=== PATIENT | female | born 1965 | race Caucasian/White ===

== ENCOUNTER 2019-02-23 14:08 | Inpatient (IN) ==
[2019-02-23] MEDS ORDERED: ZOFRAN IV PRN (17:03)
[2019-02-23] MEDS ORDERED: SALINE LOCK IV FLUID XX ONE (17:03)
[2019-02-23] MEDS ORDERED: TUBERSOL ID ONE (17:03)
[2019-02-23] MEDS ORDERED: ATARAX PO PRN (17:03)
[2019-02-23] MEDS ORDERED: IMODIUM PO PRN (17:03)
[2019-02-23] MEDS ORDERED: BENTYL PO PRN (17:03)
[2019-02-23] MEDS ORDERED: TYLENOL PO PRN (17:03)
[2019-02-23] MEDS ORDERED: D5W 1,000 ML IV PRN (17:03)
[2019-02-23] MEDS ORDERED: PHENOBARBITAL IV PRN (17:03)
[2019-02-23] MEDS ORDERED: ROBAXIN PO PRN (17:03)
[2019-02-23] MEDS ORDERED: SENOKOT PO PRN (17:03)
[2019-02-23] MEDS ORDERED: DESYREL PO PRN (17:03)
[2019-02-23] MEDS ORDERED: DULCOLAX PR PRN (17:03)
[2019-02-23] MEDS ORDERED: MAALOX PLUS LIQUID PO PRN (17:03)
[2019-02-23 17:25] LABS: URINE SOURCE VOIDED
[2019-02-23 17:34] LABS: BILIRUBIN URINE 1+ (NEGATIVE); BLOOD URINE 1+ (NEGATIVE); CLARITY SL. CLOUDY (CLEAR); COLOR YELLOW; GLUCOSE URINE NEGATIVE (NEGATIVE); KETONE URINE 3+(Large) mg/dL (NEGATIVE); LEUKOCYTES URINE TRACE (NEGATIVE); NITRITE URINE POSITIVE (NEGATIVE); PROTEIN URINE 2+(100 mg/dL) mg/dL (NEGATIVE); SP GRAVITY URINE 1.015; UROBILINOGEN URINE 4 mg/dL
[2019-02-23 17:36] LABS: URINE BACTERIA 3+ /HFP; URINE EPITHELIAL CELLS >10 /HPF (<10); URINE RBC <10 /HPF (<10); URINE WBC <10 /HPF (<10)
[2019-02-23 17:40] LABS: UR AMPHETAMINES QUAL NONE DETECTED (NONE DETECT); UR BARBITUATES QUAL NONE DETECTED (NONE DETECT); UR BENZODIAZEPIN QUAL NONE DETECTED (NONE DETECT); UR COCAINE QUAL NONE DETECTED (NONE DETECT); UR METHADONE QUAL NONE DETECTED (NONE DETECT); UR METHAMPHETAMINE QUAL NONE DETECTED (NONE DETECT); UR OPIATES QUAL PRESUMPTIVE POSITIVE (NONE DETECT); UR OXYCODONE QUAL NONE DETECTED (NONE DETECT); UR PCP QUAL NONE DETECTED (NONE DETECT); UR PROPOXYPHENE QUAL NONE DETECTED (NONE DETECT)
[2019-02-23 17:41] LABS: UR CANNABINOIDS QUAL PRESUMPTIVE POSITIVE (NONE DETECT); UR TCA QUAL NONE DETECTED (NONE DETECT)
[2019-02-23 17:52] LABS: HEMATOCRIT 37.4 % (37.0-47.0); HEMOGLOBIN 13.2 g/dL (12.0-16.0); MCHC 35.3 g/dL (33-37); MCV 96.4 FL (81-99); MPV 11.1 FL (7.4-10.4); RBC 3.88 XMIL (4.2-5.4); RDW 12.8 % (11.5-14.5); WBC 5.33 X1000 (4.8-10.8)
[2019-02-23 18:08] LABS: AMYLASE 34 U/L (20-200); LIPASE 131 U/L (13-60)
[2019-02-23 18:09] LABS: ESTIMATED GFR > 60; INR 0.95; PROTIME 13.2 Seconds (11.0-16.0)
[2019-02-23] MEDS: LIBRIUM PO SCH ×2 (18:17→23:04)
[2019-02-23] MEDS: NICODERM PATCH TD PRN (18:19)
[2019-02-23 18:23] LABS: AGAP 30; ALKALINE PHOSPHATASE 74 U/L (32-104); BUN 8 mg/dL (8-22); CALCIUM 8.9 mg/dL (8.8-10.2); CHLORIDE 87 mmol/L (98-107); COSMO 266; CREATININE 0.8 mg/dL (0.5-0.9); GLUCOSE 84 mg/dL (70-104); GOT 106 U/L (10-30); GPT 71 U/L (10-36); POTASSIUM 2.4 mmol/L (3.5-5.1); SODIUM 134 mmol/L (136-145); TCO2 18 mmol/L (25-35); TOTAL PROTEIN 6.7 g/dL (6.3-8.3)
[2019-02-23] MEDS ORDERED: M.V.I.-12 10 ML, FOLIC ACID 1 MG, MAGNESIUM SULFATE 1 GM, THIAMINE 100 MG in NS 1,000 ML IV ONE (18:30)
[2019-02-23] MEDS ORDERED: KLOR-CON PO ONE (18:35)
[2019-02-23] MEDS: SEROQUEL PO PRN (20:10)
[2019-02-24] MEDS: LIBRIUM PO SCH ×4 (05:11→23:10)
[2019-02-24] MEDS: PROTONIX PO SCH (06:04)
[2019-02-24 06:58] LABS: AGAP 22; BUN 9 mg/dL (8-22); CALCIUM 8.5 mg/dL (8.8-10.2); CHLORIDE 96 mmol/L (98-107); COSMO 277; CREATININE 0.9 mg/dL (0.5-0.9); ESTIMATED GFR > 60; GLUCOSE 106 mg/dL (70-104); POTASSIUM 2.6 mmol/L (3.5-5.1); SODIUM 139 mmol/L (136-145); TCO2 22 mmol/L (25-35)
[2019-02-24] MEDS: THERA M PLUS PO SCH (08:51)
[2019-02-24] MEDS: FOLIC ACID PO SCH (08:51)
[2019-02-24] MEDS: VITAMIN B-1 PO SCH (08:51)
[2019-02-24] MEDS: POTASSIUM CHLORIDE 20 MEQ/SWI 20 MEQ/100 ML IVPB IV SCH ×2 (08:52→10:39)
[2019-02-24] MEDS ORDERED: NS 500 ML IV ONE (10:21)
[2019-02-24] MEDS: ZOSYN 3.375 GM in NS 50 ML IV SCH ×2 (14:04→19:45)
[2019-02-24] MEDS ORDERED: KLOR-CON PO ONE (16:00)
[2019-02-24] MEDS: ZOFRAN ODT PO PRN (18:35)
[2019-02-24] MEDS: NICODERM PATCH TD PRN (19:45)
[2019-02-24] MEDS: MOTRIN PO PRN (19:57)
[2019-02-24] MEDS: SEROQUEL PO PRN (21:41)
--- NOTE | 2019-02-24 22:00 | PROGRESS NOTE ---
DATE: 02/24/2019 SUBJECTIVE: Patient notes overall that she is feeling a lot better. Still having some cough. Still having shortness of breath, fatigue, tiredness. Still having some muscle aches. Denies any current tremors. PHYSICAL EXAMINATION: Vital Signs: Reviewed. Temperature 98 degrees, pulse 80, respiratory 18, BP 84/49 to 102/69. General: Patient is awake, alert. She is currently in no respiratory distress, lying in the bed. She is very pleasant to talk with. Alert and oriented x3. HEENT: Normocephalic. Neck: Supple. Cardiovascular: Regular rate. Chest: Clear. Abdomen: Soft, nondistended. Extremities: Moves all extremities. ASSESSMENT: 1. Hypokalemia. Potassium 2.6. 2. Alcoholic hepatitis. 3. Nausea and vomiting. 4. Abdominal pain. 5. Myalgias. 6. Paresthesias. 7. Tremors. 8. Hypothyroidism. 9. Hypertension. 10. Anxiety and depression. 11. Alcohol abuse withdrawal and stabilization. PLAN: We will continue patient in the hospital, continue to stabilize for acute alcohol withdrawal. We will wean Librium as tolerated. Replace potassium and recheck. We will also treat for urinary tract infection cc: Jorge Ham MD MTDD
[2019-02-25] MEDS: ZOSYN 3.375 GM in NS 50 ML IV SCH ×4 (01:25→23:26)
[2019-02-25] MEDS: LIBRIUM PO SCH ×4 (05:07→23:25)
[2019-02-25] MEDS: PROTONIX PO SCH (06:09)
[2019-02-25 06:49] LABS: AGAP 12; ALBUMIN 2.9 g/dL (3.5-5.0); ALKALINE PHOSPHATASE 64 U/L (32-104); BUN 11 mg/dL (8-22); CHLORIDE 104 mmol/L (98-107); COSMO 280; CREATININE 0.8 mg/dL (0.5-0.9); ESTIMATED GFR > 60; GLUCOSE 145 mg/dL (70-104); GOT 88 U/L (10-30); GPT 52 U/L (10-36); POTASSIUM 2.8 mmol/L (3.5-5.1); SODIUM 139 mmol/L (136-145); TCO2 23 mmol/L (25-35); TOTAL PROTEIN 5.1 g/dL (6.3-8.3)
[2019-02-25 08:17] LABS: HEMATOCRIT 31.4 % (37.0-47.0); HEMOGLOBIN 10.7 g/dL (12.0-16.0); MCH 33.2 PG (27-31); MCHC 34.1 g/dL (33-37); MCV 97.5 FL (81-99); MPV 11.3 FL (7.4-10.4); RBC 3.22 XMIL (4.2-5.4); RDW 12.6 % (11.5-14.5); WBC 2.79 X1000 (4.8-10.8)
--- NOTE | 2019-02-25 08:23 | HISTORY AND PHYSICAL ---
CHIEF COMPLAINT: Nausea and vomiting. HISTORY OF PRESENT ILLNESS: Patient is a 54-year-old female, who notes she has been heavily drinking for years. She has started feeling weak and tired. She has been having sweating, nausea, abdominal pain and tremors. SOCIAL HISTORY: Patient is . She is unemployed. Lives at home in [place]. PAST MEDICAL HISTORY: Hypertension, hypothyroidism, anxiety, depression, insomnia. She has had a recent weight loss over the past couple months of 20 pounds, which she attributes to alcohol. She has had blackouts due to alcohol. She has had seizures while trying to stop approximately 3 months ago. Has chronic anxiety, depression. MEDICATIONS: Lisinopril 10, Seroquel 200, thyroid 225, trazodone. ALLERGIES: No known drug allergies. REVIEW OF SYSTEMS: CIWA score is 35 secondary to visible tremors, sweating. She has auditory and visual hallucinations. She is restless, easily agitated, startled. She is having abdominal pain, nausea, vomiting, occasional dry heaves, diarrhea, frequent insomnia. She notes she has difficulty concentrating. SUBSTANCE ABUSE HISTORY: In 1991, patient was in treatment in [place] for [address] [facility] over 6 months 2016 was in [place] for a week, [facility] over 6 months 2017 was in [facility] and stayed sober for 10 months. Alcohol has created legal and relationship problems. She is developing health problems. 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 Notes that she cannot sleep or function secondary to alcohol. She started drinking at 14, currently drinks at least a pint a day. She has tried marijuana, smokes occasionally. She has used Adipex in her 20s, cocaine in her 20s, hallucinogens in her 20s, opiates in her 40s, but currently does not take. Started smoking at 26; currently smokes a pack and half a day. FAMILY HISTORY: Noncontributory. PHYSICAL EXAMINATION: VITAL SIGNS: Reviewed and stable. GENERAL: Patient is awake, alert. She is in no current respiratory distress. She is somewhat ill appearing. She is fidgety, anxious, difficulty concentrating. HEENT: Normocephalic. NECK: Supple. CARDIOVASCULAR: Regular rate. CHEST: Clear. ABDOMEN: Soft. EXTREMITIES: Moves all extremities. NEUROLOGIC: She has no focal changes. She does have tremors visible on exam. SKIN: Warm and dry, no rashes. LABS: Pending. ASSESSMENT: 1. Nausea, vomiting, abdominal pain and dry heaves. 2. Myalgias. 3. Tremors. 4. Paresthesias. 5. Weight loss. 6. Alcohol withdrawal with history of seizures and blackouts. 7. Hypertension. 8. Hypothyroidism. PLAN: We will admit patient to the hospital, place her on a banana bag, high-dose Librium taper, begin counseling. Continue her home medications. Further orders as needed. cc: Jorge Ham MD
[2019-02-25] MEDS: MOTRIN PO PRN (09:05)
[2019-02-25] MEDS: FOLIC ACID PO SCH (09:05)
[2019-02-25] MEDS: VITAMIN B-1 PO SCH (09:05)
[2019-02-25] MEDS: KLOR-CON PO SCH ×2 (09:05→20:13)
[2019-02-25] MEDS: THERA M PLUS PO SCH (09:05)
--- NOTE | 2019-02-25 17:48 | PROGRESS NOTE ---
DATE: 02/25/2019 SUBJECTIVE: The patient notes that her tremors seem to have resolved. She still has some withdrawal issues of nausea, agitation, and did not sleep well last night. She still having some muscle aches, but overall notes that everything is improving. PHYSICAL EXAMINATION: Vital Signs: Reviewed. She is awake, alert. She is in no respiratory distress. Temperature 98 degrees, pulse 80, respiratory rate 20, BP 85 to 102 systolic. General: The patient is awake. She is pleasant to talk with. HEENT: Normocephalic. Neck: Supple. Cardiovascular: Regular rate. Chest: Clear, nonlabored. Abdomen: Soft, nondistended. Extremities: Moves all extremities. Neurologic: No changes. ASSESSMENT: 1. Hypokalemia. Potassium is still low. We are going to replace and recheck her magnesium. 2. Nausea and vomiting. 3. Abdominal pain. 4. Myalgias. 5. Paresthesias. 6. Alcohol abuse withdrawal and stabilization. PLAN: Continue Librium taper. Further orders as needed. Replace potassium and recheck. cc: Jorge Ham MD
[2019-02-26] MEDS: ZOSYN 3.375 GM in NS 50 ML IV SCH (04:35)
[2019-02-26] MEDS: LIBRIUM PO SCH ×4 (05:11→20:21)
[2019-02-26 06:01] LABS: HEMATOCRIT 32.8 % (37.0-47.0); HEMOGLOBIN 10.9 g/dL (12.0-16.0); MCH 33.2 PG (27-31); MCHC 33.2 g/dL (33-37); MPV 11.3 FL (7.4-10.4); RBC 3.28 XMIL (4.2-5.4); RDW 13.4 % (11.5-14.5); WBC 2.68 X1000 (4.8-10.8)
[2019-02-26] MEDS: PROTONIX PO SCH (06:02)
[2019-02-26 06:30] LABS: AGAP 11; BUN 14 mg/dL (8-22); CALCIUM 8.9 mg/dL (8.8-10.2); CHLORIDE 109 mmol/L (98-107); COSMO 285; CREATININE 0.7 mg/dL (0.5-0.9); ESTIMATED GFR > 60; GLUCOSE 125 mg/dL (70-104); POTASSIUM 3.6 mmol/L (3.5-5.1); SODIUM 142 mmol/L (136-145); TCO2 23 mmol/L (25-35); TOTAL PROTEIN 5.1 g/dL (6.3-8.3)
[2019-02-26 06:31] LABS: ALBUMIN 2.8 g/dL (3.5-5.0); ALKALINE PHOSPHATASE 61 U/L (32-104); GOT 83 U/L (10-30); GPT 61 U/L (10-36); MAGNESIUM 1.5 mg/dL (1.5-2.7)
[2019-02-26] MEDS: VITAMIN B-1 PO SCH (09:15)
[2019-02-26] MEDS: THERA M PLUS PO SCH (09:15)
[2019-02-26] MEDS: FOLIC ACID PO SCH (09:15)
[2019-02-26] MEDS: ZOFRAN ODT PO PRN (09:15)
[2019-02-26] MEDS: KLOR-CON PO SCH (11:40)
[2019-02-26] MEDS: LEVAQUIN PO SCH (11:41)
--- NOTE | 2019-02-26 15:28 | PROGRESS NOTE ---
DATE: 02/26/2019 SUBJECTIVE: The patient notes that overall, she is feeling better, still tired and fatigued, but her muscle aches have improved. Nausea and vomiting have improved. Denies any fevers or chills. PHYSICAL EXAMINATION: Vital Signs: Reviewed. General: She is awake, alert, oriented. She is in no current respiratory distress. HEENT: Normocephalic. Neck: Supple. Cardiovascular: Regular rate. Chest: Clear. Abdomen: Soft, nondistended. Extremities: Moves all extremities. Neurologic: No changes. ASSESSMENT: 1. Hypokalemia. Potassium is back to normal at 3.6. 2. Hepatitis, stable. 3. Nausea and vomiting, resolved. 4. Urinary tract infection with Escherichia coli. 5. Alcohol abuse withdrawal and stabilization. PLAN: Will continue the patient in the hospital. Continue to wean Librium. Continue counseling. Further orders as needed. cc: Jorge Ham MD
[2019-02-27] MEDS: PROTONIX PO SCH (06:03)
[2019-02-27] MEDS: LIBRIUM PO SCH ×2 (09:21→20:38)
[2019-02-27] MEDS: VITAMIN B-1 PO SCH (09:21)
[2019-02-27] MEDS: LEVAQUIN PO SCH (09:21)
[2019-02-27] MEDS: REVIA PO SCH (09:21)
[2019-02-27] MEDS: FOLIC ACID PO SCH (09:22)
[2019-02-27] MEDS: THERA M PLUS PO SCH (09:22)
[2019-02-27] MEDS: MOTRIN PO PRN (17:05)
[2019-02-27] MEDS: SEROQUEL PO PRN (20:38)
--- NOTE | 2019-02-28 06:08 | DISCHARGE SUMMARY ---
ADMISSION DATE: 02/23/2019 DISCHARGE DATE: 02/27/2019 DISCHARGE DIAGNOSES: 1. Nausea and vomiting. 2. Abdominal pain. 3. Myalgias. 4. Paresthesias. 5. Paroxysmal sweating. 6. Alcohol abuse withdrawal and stabilization. 7. E. Coli urinary tract infection, pansensitive. CONSULTATIONS: None. PROCEDURES: None. BRIEF HOSPITAL COURSE: Patient is a 54-year-old female who presented to [facility] with nausea, vomiting, abdominal pain, tremors, and myalgias. Subsequently, she was diagnosed with urinary tract infection with Escherichia coli. Thankfully, she had an uneventful hospital course otherwise. She was admitted for alcohol withdrawal, and placed on high- dose Librium taper. CONSULTATIONS: None. PROCEDURES: None. BRIEF HOSPITAL COURSE: The patient is a 54-year-old female who presented as noted, and treated in the usual fashion. DISPOSITION: Patient will be discharged home. She will follow up outpatient with treatment facility of choice. She will be completely weaned off Librium over the next day or two. We did write a prescription for naltrexone. We discussed with her medication assisted therapy. Discussed that it is only assisted therapy, and that she still needs outpatient treatment, life counseling, and life changes, etc. cc: Jorge Ham MD
[2019-02-28] MEDS: PROTONIX PO SCH (06:45)
[2019-02-28] MEDS ORDERED: LIBRIUM PO SCH (09:00)
[2019-02-28] MEDS: LEVAQUIN PO SCH (09:03)
[2019-02-28] MEDS: THERA M PLUS PO SCH (09:03)
[2019-02-28] MEDS: VITAMIN B-1 PO SCH (09:03)
[2019-02-28] MEDS: REVIA PO SCH (09:03)
[2019-02-28] MEDS: FOLIC ACID PO SCH (09:03)
[2019-02-28 12:42] VITALS: BP 104/76
--- NOTE | 2019-02-28 15:43 | PROGRESS NOTE ---
DATE: 02/28/2019 SUBJECTIVE: Patient notes she still feels tired, fatigued, still feels somewhat depressed, anxious. She is very scared about going home. PHYSICAL EXAMINATION: Vital Signs: Reviewed. She is awake, alert. She is in no respiratory distress. HEENT: Normocephalic. Neck: Supple. Cardiovascular: Regular rate. No murmurs. Chest: Clear and nonlabored. Abdomen: Soft. Extremities: Moves all extremities. Neurologic: No changes. ASSESSMENT: 1. Nausea, vomiting, abdominal pain. 2. Myalgias. 3. Paresthesias. 4. Paroxysmal sweating. 5. Alcohol abuse withdrawal and stabilization. 6. Chronic anxiety and depression. PLAN: Will continue patient in the hospital today. Hopefully she can discharge later this afternoon. Further orders as needed. Continue counseling. cc: Jorge Ham MD
--- NOTE | 2019-02-28 15:43 | PROGRESS NOTE ---
DATE: 02/27/2019 SUBJECTIVE: Patient notes that she is still tired and fatigued. Denies any fevers or chills. PHYSICAL EXAMINATION: Vital Signs: Reviewed and stable. General: She is awake and alert. She is in no current respiratory distress. HEENT: Normocephalic. Neck: Supple. Cardiovascular: Regular rate. Chest: Clear. Abdomen: Soft. Extremities: Moves all extremities. ASSESSMENT: 1. Nausea and vomiting. 2. Abdominal pain. 3. Myalgias. 4. Paresthesias. 5. Paroxysmal sweating. 6. Alcohol abuse withdrawal and stabilization. 7. Chronic fatigue. 8. Depression. PLAN: We will continue patient in the hospital. Hopefully, she can discharge home later this afternoon if she starts to feel better. We will continue to wean Librium. cc: Jorge Ham MD
== END 2019-02-28 14:25 | disposition home or self-care (01) | DRG 897 ==
LOC: P.DIRADM 14:51
PROVIDERS: ADMIT Family Medicine; ATTEND Family Medicine

== ENCOUNTER 2019-06-28 10:57 | Inpatient (IN) ==
[2019-06-28] MEDS ORDERED: DESYREL PO PRN (11:46)
[2019-06-28] MEDS ORDERED: PHENOBARBITAL IV PRN (11:46)
[2019-06-28] MEDS ORDERED: TYLENOL PO PRN (11:46)
[2019-06-28] MEDS ORDERED: ZOFRAN IM PRN (11:46)
[2019-06-28] MEDS ORDERED: SENOKOT PO PRN (11:46)
[2019-06-28] MEDS ORDERED: D5W 1,000 ML IV PRN (11:46)
[2019-06-28] MEDS ORDERED: MAALOX PLUS LIQUID PO PRN (11:46)
[2019-06-28] MEDS ORDERED: NICOTINE GUM BUCCAL PRN (11:46)
[2019-06-28] MEDS ORDERED: MOTRIN PO PRN (11:46)
[2019-06-28] MEDS ORDERED: ZOFRAN IV PRN (11:46)
[2019-06-28] MEDS ORDERED: DULCOLAX PR PRN (11:46)
[2019-06-28] MEDS ORDERED: ZOFRAN ODT PO PRN (11:46)
[2019-06-28] MEDS ORDERED: TUBERSOL ID ONE (11:46)
[2019-06-28] MEDS ORDERED: IMODIUM PO PRN ×2 (11:46)
[2019-06-28 12:17] LABS: HEMOGLOBIN 15.4 g/dL (12.0-16.0); MCH 31.2 PG (27-31); MCHC 33.5 g/dL (33-37); MCV 93.3 FL (81-99); MPV 9.3 FL (7.4-10.4); RBC 4.93 XMIL (4.2-5.4); RDW 13.5 % (11.5-14.5); WBC 6.9 X1000 (4.8-10.8)
[2019-06-28 12:29] LABS: ESTIMATED GFR > 60
[2019-06-28 12:34] LABS: AGAP 24; ALBUMIN 4.7 g/dL (3.5-5.0); ALKALINE PHOSPHATASE 77 U/L (32-104); AMYLASE 37 U/L (20-200); BUN 24 mg/dL (8-22); CHLORIDE 100 mmol/L (98-107); COSMO 282; CREATININE 0.7 mg/dL (0.5-0.9); GLUCOSE 99 mg/dL (70-104); GOT 61 U/L (10-30); GPT 36 U/L (10-36); LIPASE 25 U/L (13-60); SODIUM 139 mmol/L (136-145); TCO2 15 mmol/L (25-35); TOTAL PROTEIN 8.2 g/dL (6.3-8.3)
[2019-06-28] MEDS: NICODERM PATCH TD PRN (12:37)
[2019-06-28] MEDS ORDERED: PNEUMOVAX 23 IM ONE (12:54)
[2019-06-28] MEDS ORDERED: SALINE LOCK IV FLUID XX ONE (13:13)
[2019-06-28] MEDS ORDERED: BENTYL PO PRN (13:13)
[2019-06-28] MEDS ORDERED: ATARAX PO PRN (13:13)
[2019-06-28] MEDS ORDERED: ROBAXIN PO PRN (13:13)
[2019-06-28] MEDS: LIBRIUM PO SCH ×2 (13:55→20:05)
[2019-06-28] MEDS ORDERED: M.V.I.-12 10 ML, FOLIC ACID 1 MG, MAGNESIUM SULFATE 1 GM, THIAMINE 100 MG in NS 1,000 ML IV ONE (15:00)
[2019-06-28 15:58] LABS: URINE SOURCE CLEAN CATCH
[2019-06-28 16:01] LABS: BILIRUBIN URINE NEGATIVE (NEGATIVE); BLOOD URINE TRACE (NEGATIVE); COLOR YELLOW; GLUCOSE URINE NEGATIVE (NEGATIVE); KETONE URINE 10 mg/dL (NEGATIVE); LEUKOCYTES URINE TRACE (NEGATIVE); NITRITE URINE NEGATIVE (NEGATIVE); PROTEIN URINE 200 mg/dL (NEGATIVE); SP GRAVITY URINE 1.019; TURBIDITY URINE HAZY (CLEAR); UROBILINOGEN URINE NORMAL (NORMAL)
[2019-06-28 16:02] LABS: UR EPITHELIAL CELLS >10 /HPF (<10); URINE BACTERIA 4+ /HPF; URINE RBC <10 /HPF (<10); URINE WBC 20-40 /HPF (<10)
[2019-06-28 16:09] LABS: UR AMPHETAMINES QUAL NONE DETECTED (NONE DETECT); UR BARBITUATES QUAL NONE DETECTED (NONE DETECT); UR BENZODIAZEPIN QUAL PRESUMPTIVE POSITIVE (NONE DETECT); UR CANNABINOIDS QUAL PRESUMPTIVE POSITIVE (NONE DETECT); UR COCAINE QUAL NONE DETECTED (NONE DETECT); UR METHADONE QUAL NONE DETECTED (NONE DETECT); UR METHAMPHETAMINE QUAL NONE DETECTED (NONE DETECT); UR OPIATES QUAL NONE DETECTED (NONE DETECT); UR OXYCODONE QUAL NONE DETECTED (NONE DETECT); UR PCP QUAL NONE DETECTED (NONE DETECT); UR PROPOXYPHENE QUAL NONE DETECTED (NONE DETECT); UR TCA QUAL PRESUMPTIVE POSITIVE (NONE DETECT)
[2019-06-28] MEDS: SEROQUEL PO PRN (20:07)
--- NOTE | 2019-06-28 21:17 | HISTORY AND PHYSICAL ---
CHIEF COMPLAINT: Nausea and vomiting. HISTORY OF PRESENT ILLNESS: The patient is a very pleasant 54-year-old female who unfortunately has a known history of alcohol and alcohol withdrawal. She was actually in [facility] 2 months ago and started drinking almost immediately upon leaving. She notes now that she is having tremors, myalgias and paresthesias, feels like her skin is crawling. She has fatigue and has a decreased oral intake. SOCIAL HISTORY: She is . She is currently unemployed. Lives at home in [place]. PAST MEDICAL HISTORY: Significant for hypertension, hypothyroidism, chronic anxiety, depression, insomnia, recent suicide attempt a week ago. She notes that she is not suicidal currently. Notes that alcohol causes some of those effects. She has had a history of blackouts while she is drinking. MEDICATIONS: Lisinopril 10, estrogen, Seroquel, thyroid pill daily, Effexor 225 and trazodone. ALLERGIES: No known drug allergies. REVIEW OF SYSTEMS: CIWA score is 26 secondary to nausea, vomiting, abdominal pain, tremors, myalgias, paresthesias, paroxysmal sweating, decreased oral intake and increased fatigue. Denies any chest pain or palpitations. Denies any fevers or chills. Denies dysuria. No frequency or urgency. SUBSTANCE ABUSE HISTORY: The patient was in treatment in 2016 at [facility], stayed sober for 6 months. In 2017 states she was in treatment, stayed sober in sober living for approximately 10 months. She was in [facility] earlier in 2019 and relapsed immediately. She notes that alcohol has caused legal, health and social problems, relationship problems as well as legal problems that she has pending from 2 years ago. The patient notes that she has been drinking heavily every day. Denies any other current illicit substance use. FAMILY HISTORY: Noncontributory. PHYSICAL EXAMINATION: VITAL SIGNS: Reviewed. GENERAL: The patient is awake, alert. She is very pleasant. She is in no current respiratory distress. She is somewhat tremulous on exam. She appears weak and much older than her stated age. HEENT: Normocephalic. NECK: Supple. CARDIOVASCULAR: Regular rate. No murmurs. CHEST: Clear, nonlabored. ABDOMEN: Soft, nondistended. EXTREMITIES: Moves all extremities. NEUROLOGIC: No focal changes, although she does have tremors at rest, shaking and generally weak. ASSESSMENT: 1. Nausea and vomiting. 2. Abdominal pain. 3. Myalgias. 4. Paresthesias. 5. Paroxysmal sweating. 6. Tremors. 7. Alcohol abuse, withdrawal and stabilization. 8. Hypertension. 9. Hypothyroidism. 10. Chronic anxiety. PLAN: We will continue the patient in the hospital. Continue counseling. We will place her on high-dose Librium. Further orders as needed. cc: Jorge Ham MD MTDD
[2019-06-29] MEDS: LIBRIUM PO SCH ×4 (02:20→20:14)
[2019-06-29] MEDS: PROTONIX PO SCH ×2 (06:47→08:27)
[2019-06-29] MEDS: FOLIC ACID PO SCH (08:27)
[2019-06-29] MEDS: THERA M PLUS PO SCH (08:27)
[2019-06-29] MEDS: VITAMIN B-1 PO SCH (08:27)
--- NOTE | 2019-06-29 19:52 | PROGRESS NOTE ---
DATE: 06/29/2019 SUBJECTIVE: The patient notes overall is feeling a little bit better. Tremors have improved. Sweating has improved. Nausea has improved but still has some. Denies fevers or chills. OBJECTIVE: Vital Signs: Reviewed. Temperature 97.9 degrees, pulse 91, respiratory rate 18, BP 159/86. General: She is awake, alert. No current respiratory distress. Patient is pleasant. HEENT: Normocephalic. Neck: Supple. Cardiovascular: Regular rate. No murmurs. Chest clear and nonlabored. Abdomen: Soft. Nondistended. Extremities: Moves all extremities. ASSESSMENT: 1. Nausea and vomiting. 2. Abdominal pain. 3. Myalgias. 4. Paresthesias. 5. Paroxysmal sweating. 6. Tremors. 7. Alcohol abuse, withdrawal and stabilization. 8. Chronic anxiety and depression. PLAN: We are going to continue patient in the hospital, continue to follow, continue treatment, continue to wean Librium as tolerated. Further workup as needed. cc: Jorge Ham MD MTDD
[2019-06-29] MEDS: SEROQUEL PO PRN (20:14)
[2019-06-30] MEDS: LIBRIUM PO SCH ×4 (01:38→20:06)
[2019-06-30] MEDS: PROTONIX PO SCH (06:18)
[2019-06-30] MEDS: VITAMIN B-1 PO SCH (09:51)
[2019-06-30] MEDS: THERA M PLUS PO SCH (09:51)
[2019-06-30] MEDS: FOLIC ACID PO SCH (09:51)
[2019-06-30] MEDS: NICODERM PATCH TD PRN (09:51)
--- NOTE | 2019-06-30 17:47 | PROGRESS NOTE ---
DATE: 06/30/2019 SUBJECTIVE: Patient notes that he is starting a little bit better. Denies any fevers, chills. Denies cough, congestion. His tremors have improved. PHYSICAL EXAMINATION: Vital Signs: Reviewed. Temperature 98 degrees, pulse 85, respiratory rate 18, blood pressure 151/85. General: Patient is pleasant. She is in no respiratory distress, lying flat in the bed. HEENT: Normocephalic. Neck: Supple. Cardiovascular: Regular rate. No murmurs. Chest: Clear, nonlabored. Abdomen: Soft, nondistended. Extremities: Moves all extremities. Neurologic: No changes. ASSESSMENT: 1. Nausea and vomiting. 2. Abdominal pain. 3. Myalgias. 4. Paresthesias. 5. Tremors. 6. Depression. 7. Alcohol abuse withdrawal and stabilization. 8. Hypertension. PLAN: Overall, patient has improved. Continue to wean her Librium currently down to 20 mg q.6. Continue counseling. Further orders as needed. We will follow her blood pressures as well. cc: Jorge Ham MD
[2019-06-30] MEDS: SEROQUEL PO PRN (20:06)
[2019-07-01] MEDS: LIBRIUM PO SCH ×4 (03:11→20:07)
[2019-07-01] MEDS: PROTONIX PO SCH (06:00)
[2019-07-01] MEDS: VITAMIN B-1 PO SCH (09:01)
[2019-07-01] MEDS: FOLIC ACID PO SCH (09:01)
[2019-07-01] MEDS: THERA M PLUS PO SCH (09:01)
[2019-07-01] MEDS ORDERED: LIBRIUM PO SCH (13:00)
[2019-07-01] MEDS: SEROQUEL PO PRN (20:07)
[2019-07-02] MEDS: LIBRIUM PO SCH (05:01)
[2019-07-02] MEDS: PROTONIX PO SCH (06:32)
--- NOTE | 2019-07-02 07:16 | PROGRESS NOTE ---
DATE: 07/02/2019 SUBJECTIVE: Patient has no new complaints. Sleeping well. PHYSICAL EXAMINATION: Vital Signs: Reviewed. She is in no distress. Temperature 98 degrees, pulse 84, respiratory rate 18, blood pressure 136/98. General: Patient seems to have had a better night, sleeping better. HEENT: Normocephalic, atraumatic. Neck: Supple. Cardiovascular: Sinus rhythm. Chest: Nonlabored. Extremities: Moves all extremities. Neurologic: No changes. ASSESSMENT: 1. Nausea and vomiting. 2. Abdominal pain. 3. Myalgias. 4. Paresthesias. 5. Paroxysmal sweating. 6. Alcohol abuse withdrawal and stabilization. PLAN: We will continue the patient in the hospital continue to wean. We will decrease her Librium today. Hopefully home in the next 1 or 2 days. cc: Jorge Ham MD
[2019-07-02 08:38] VITALS: BP 127/85
--- NOTE | 2019-07-02 18:54 | DISCHARGE SUMMARY ---
ADMISSION DATE: 06/28/2019 DISCHARGE DATE: 07/02/2019 DISCHARGE DIAGNOSES: 1. Nausea, vomiting. 2. Abdominal pain. 3. Myalgias. 4. Paresthesias. 5. Paroxysmal sweating. 6. Alcohol abuse, withdrawal, and stabilization. 7. Hypertension. 8. Hypothyroidism. 9. Chronic anxiety, depression. CONSULTATIONS: None. PROCEDURES: None. BRIEF HOSPITAL COURSE: Patient was admitted to the hospital secondary to chronic and acute alcoholism with acute alcohol withdrawal. She was having nausea, vomiting, abdominal pain, myalgias, tremors. Thankfully, her symptoms quickly improved with high-dose Librium taper. Counseling was performed this day by myself. Patient continued to slowly improve, and on discharge her withdrawal symptoms have resolved, and she has been weaned off Librium. DISPOSITION: Patient be discharged home with naltrexone as well as Seroquel. TIME SPENT: Greater than 30 minutes was spent in total consultation. Discussed with patient that at the last visit she left on her on accord, left much earlier than we had preferred. Discussed her that she needs outpatient life counseling as well as alcohol counseling. She needs a sponsor. She needs to avoid situations in which she is tempted to drink. She needs to avoid as much alone time as possible. We did discharge her with naltrexone and Seroquel. cc: Jorge Ham MD
[2019-07-03] MEDS ORDERED: LIBRIUM PO SCH (06:00)
== END 2019-07-02 09:58 | disposition home or self-care (01) | DRG 897 ==
LOC: P.MEDSURG 10:57
PROVIDERS: ADMIT Family Medicine; ATTEND Family Medicine